=== PATIENT | female | born 1960 | race Caucasian/White ===

== ENCOUNTER → 2021-01-30 | Outpatient (CLI) | payer OTHER ==
[~2021-01-30] MED LIST: BC POWDER PO; COLACE 100100 MG/CAP PO; GAS-X ULTRA ST180 MG PO; MULTI-VITAMIN W1 TA1 PO; PROBIOTIC FORMU1 CAP PO; ROXICODONE 55 MG/TAB PO; TYLENOL 500MG500 MG PO
== END ==
LOC: COL.RAD 07:11
DX: K63.89 Other specified diseases of intestine (principal); N89.8 Other specified noninflammatory disorders of vagina
CPT/HCPCS: Q9967

== ENCOUNTER 2021-02-15 13:56 | Inpatient (IN) | payer OTHER ==
[~2021-02-15] VITALS: Ht 165.1 cm; Wt 46.2 kg
[~2021-02-15 13:56] MED LIST changes: -BC POWDER PO; -COLACE 100100 MG/CAP PO; -GAS-X ULTRA ST180 MG PO; -MULTI-VITAMIN W1 TA1 PO; -ROXICODONE 55 MG/TAB PO; -TYLENOL 500MG500 MG PO
[2021-03-11] MEDS ORDERED: GAS-X ULTRA ST180 MG PO (09:22)
[2021-03-11] MEDS ORDERED: MULTI-VITAMIN W1 TA1 PO (09:22)
[2021-03-11] MEDS ORDERED: COLACE 100100 MG/CAP PO (09:22)
[2021-03-12] VITALS (10 sets, daily range): BP systolic 114–148; BP diastolic 55–81; PULSE 50–69; TEMP 97.8–98.4
[2021-03-12] MEDS ORDERED: BC POWDER PO (11:50)
--- NOTE | 2021-03-12 18:30 | NUR ---
Patient got back from surgery at 1725. She was very drowsy. She would barely wake up when she you tried to talk to her. She wakes easily now and answer questions appropriatly but falls right back to sleep. Vital signs stable. Oriented patient to room. Explained she can not have straws or carbonation. Explained ERAS protocol. Butt secured to leg, urine yellow and clear. Explained when she's more awake will given her something to drink. No other changes at this time. Call light within reach.
--- NOTE | 2021-03-13 00:18 | NUR ---
PT REQUESTS TO TAKE WALK. A&O X3. PT HAS BEEN NAUSEOUS, ZOFRAN IV ADMINISTERED WITH PAIN MEDICATION ET GIVEN BEEF BROTH TO DRINK. PT AMBULATES TO NURSES STATION ET BACK TO HER ROOM WITH 2 ASSIST ET GAITBELT. TOLERATES WELL, GAIT IS STEADY. PT DOES BECOME SLIGHTLY SOA WITH AMBULATION.IV FLUIDS CONTINUE TO INFUSE, TAYLOR CATHETER DRAINING CLEAR YELLOW URINE. SCDs ON, PT DENIES OTHER NEEDS @ THIS TIME. BED ALARM ON, CALL LIGHT WITHIN REACH.
[2021-03-13 04:33] VITALS: BP 122/73; PULSE 82; TEMP 98.5
--- NOTE | 2021-03-13 06:05 | NUR ---
PT RESTING QUIETLY IN BED @ THIS TIME. RESPIRATIONS UNLABORED. TYALOR CATHETER DRAINING CLEAR YELLOW URINE. IV FLUIDS CONTINUE INFUSING. PT HAD NOT BEEN ABLE TO DRINK BEEF BROTH GIVEN TO HER DURING NIGHT RELATED TO NAUSEA ET STATED THAT SHE BURPED UP THE ORANGE JELLO SHE ATE THE NIGHT BEFORE. PT HAS TAKEN MULTIPLE WALKS OUTSIDE OF ROOM WITH 1 ASSIST ET GAITBELT, HAS TOLERATED WELL, GAIT IS STEADY.
[2021-03-13 06:52] LABS: BASO % 0.1 % (0.0-2.0); GRAN # 12.6 K/mm3 (1.4-6.5); GRAN % 79.1 % (42.2-75.2); HEMATOCRIT 37.7 % (37.0-47.0); HEMOGLOBIN 12.9 g/dl (12.5-16.0); LYMPH % 12.7 % (20.0-51.0); MEAN CELL VOLUME 91 fl (80.0-100.0); MEAN CORPUSCULAR HEMOGLOBIN 31 pg (27.0-31.0); MEAN CORPUSCULAR HGB CONC 34 g/dl (33.0-37.0); MEAN PLATELET VOLUME 11.3 fl (7.4-10.4); MONO # 1.2 K/mm3 (0.1-0.6); MONO % 7.6 % (1.7-9.3); PLATELET COUNT 274 K/mm3 (130-400); RED BLOOD COUNT 4.15 M/mm3 (4.10-5.30); REDCELL DISTRIBUTION WIDTH-CV 12.9 % (11.5-14.5)
--- NOTE | 2021-03-13 07:10 | NUR ---
Pt doing okay this morning, no needs verbalized, call light within reach
[2021-03-13 07:21] LABS: CALCIUM 9.3 mg/dL (8.4-10.2); CREATININE, serum 0.75 mg/dL (0.57-1.11); MAGNESIUM 1.9 mg/dL (1.6-2.6); PHOSPHOROUS 3.2 mg/dL (2.3-4.7); POTASSIUM 4.1 mmol/L (3.5-4.5)
[2021-03-13 08:00] VITALS: BP 121/71; PULSE 60; TEMP 98.6
[2021-03-13 12:00] VITALS: BP 136/79; PULSE 72; TEMP 98.5
--- NOTE | 2021-03-13 13:08 | NUR ---
Initial visit; Patient thanked Communications Project Manager for looking in on her and offering prayer and to keep her in Communications Project Manager's prayers. Communications Project Manager visited later to deliver shaffer from her sister.
--- NOTE | 2021-03-13 13:30 | NUR ---
SW met with patient to discuss discharge planning. Patient states she and her significant other, Brayan Banks ([phone]), live in [place] where patient is fully independent. She has no DMES and does not require anything. Patient reports she uses Dr. Jessica Graves for her PCP and that she doesn't presently take any meds but she would use the [facility] if necessary. Patient reports that she does not have a MPOA and she isn't interested in one. SW will follow for patient needs. D/C Plan: home with no needs
--- NOTE | 2021-03-13 13:36 | NUR ---
Pt doing well. Pain controlled by scheduled tylenol. Discussed getting up and walking. Pt getting up and ambulating with standby assist and doing well.
[2021-03-13 15:24] VITALS: BP 150/81; PULSE 67; TEMP 99.4
[2021-03-13 20:30] VITALS: BP 143/81; PULSE 76; TEMP 98.2
[2021-03-13 23:54] VITALS: BP 132/78; PULSE 68; TEMP 98.1
--- NOTE | 2021-03-14 02:38 | NUR ---
PT TOLERATING CLEAR LIQUID DIET WELL ET HAS ADEQUATE OUTPUT FROM TAYLOR CATHETER. URINE IS CLEAR PALE YELLOW. IV FLUIDS STOPPED ET PERIPHERAL IV SALINE LOCKED @ THIS TIME.
[2021-03-14 04:25] VITALS: BP 132/70; PULSE 77; TEMP 98.1
[2021-03-14 06:41] LABS: BASO # 0.1 K/mm3 (0.0-0.2); BASO % 0.3 % (0.0-2.0); EOS # 0.2 K/mm3 (0.0-0.7); EOS % 1.3 % (0-4.0); GRAN # 14.4 K/mm3 (1.4-6.5); GRAN % 78.7 % (42.2-75.2); HEMATOCRIT 39.9 % (37.0-47.0); HEMOGLOBIN 13.5 g/dl (12.5-16.0); LYMPH # 2.8 K/mm3 (1.2-3.4); LYMPH % 15.4 % (20.0-51.0); MEAN CELL VOLUME 91 fl (80.0-100.0); MEAN CORPUSCULAR HEMOGLOBIN 31 pg (27.0-31.0); MEAN CORPUSCULAR HGB CONC 34 g/dl (33.0-37.0); MEAN PLATELET VOLUME 10.7 fl (7.4-10.4); MONO # 0.7 K/mm3 (0.1-0.6); MONO % 3.9 % (1.7-9.3); PLATELET COUNT 251 K/mm3 (130-400); REDCELL DISTRIBUTION WIDTH-CV 12.9 % (11.5-14.5)
[2021-03-14 07:02] LABS: ALBUMIN 3.4 gm/dL (3.4-4.8); BILIRUBIN,TOTAL 0.7 mg/dL (0.2-1.2); CALCIUM 9.4 mg/dL (8.4-10.2); CREATININE, serum 0.65 mg/dL (0.57-1.11); POTASSIUM 4.2 mmol/L (3.5-4.5); TOTAL PROTEIN 6.2 gm/dL (6.2-8.1)
[2021-03-14 07:48] VITALS: BP 136/82; PULSE 78; TEMP 99.2
[2021-03-14 10:41] LABS: MUCOUS Present /lpf; PH 7 (5-8); SQUAMOUS EPITHELIAL None Seen /hpf; URINE APPEARANCE Clear; URINE BACTERIA None Seen /hpf; URINE BILIRUBIN Negative (NEGATIVE); URINE BLOOD 2+ (NEGATIVE); URINE COLOR Straw; URINE GLUCOSE Negative (NEGATIVE); URINE KETONE 1+ (NEGATIVE); URINE LEUKOCYTE ESTERASE Negative (NEGATIVE); URINE NITRATE Negative (NEGATIVE); URINE PROTEIN(semi-quant) Negative (NEGATIVE); URINE UROBILINOGEN Negative (NEGATIVE)
[2021-03-14 10:51] LABS: COLLECTION METHOD CLEAN CATCH
[2021-03-14 11:23] VITALS: BP 149/80; PULSE 82; TEMP 99.1
--- NOTE | 2021-03-14 12:45 | NUR ---
Discussed results of UA with césar Henry to remove iván.
--- NOTE | 2021-03-14 13:15 | NUR ---
pt continues to do well. She is up ambulating and is passing gas. She is tolerating full liquid diet. Minimal pain complaints. Butt has been removed per orders. Discussed her taking a shower this afternoon which she did state she wanted. She reported that her sister was going to visit and then she would let me know. No other needs verbalized, call light within reach
[2021-03-14 16:00] VITALS: BP 150/97; PULSE 98; TEMP 98.9
--- NOTE | 2021-03-14 16:09 | NUR ---
Notified Dr Sam of redness to patients back and chest area. Reported that he would be in to see patient. Called radiology as well regarding chest xray that was ordered this morning that has not been done. Pt reports that she does not notice the rash at all and that it does not itch. Will await new orders
[2021-03-14 19:41] VITALS: BP 142/75; PULSE 76; TEMP 98.9
--- NOTE | 2021-03-14 20:10 | NUR ---
Pt. sitting up in bed. Pt. is A&OX3, assessment complete. INT to lt. forearm patent. Pt. denies pain or other needs, call light within reach.
[2021-03-15 00:31] VITALS: BP 137/84; PULSE 58; TEMP 98.3
[2021-03-15 04:13] VITALS: BP 133/80; PULSE 56; TEMP 97.9
[2021-03-15 07:01] LABS: BASO # 0.1 K/mm3 (0.0-0.2); BASO % 0.5 % (0.0-2.0); EOS # 0.3 K/mm3 (0.0-0.7); EOS % 2.5 % (0-4.0); GRAN # 9.1 K/mm3 (1.4-6.5); GRAN % 70.8 % (42.2-75.2); HEMATOCRIT 40.8 % (37.0-47.0); LYMPH # 2.8 K/mm3 (1.2-3.4); LYMPH % 21.6 % (20.0-51.0); MEAN CELL VOLUME 91 fl (80.0-100.0); MEAN CORPUSCULAR HEMOGLOBIN 31 pg (27.0-31.0); MEAN CORPUSCULAR HGB CONC 34 g/dl (33.0-37.0); MEAN PLATELET VOLUME 11.1 fl (7.4-10.4); MONO # 0.6 K/mm3 (0.1-0.6); MONO % 4.3 % (1.7-9.3); PLATELET COUNT 254 K/mm3 (130-400); RED BLOOD COUNT 4.49 M/mm3 (4.10-5.30); REDCELL DISTRIBUTION WIDTH-CV 12.8 % (11.5-14.5)
[2021-03-15 07:23] LABS: ALBUMIN 3.3 gm/dL (3.4-4.8); BILIRUBIN,TOTAL 0.7 mg/dL (0.2-1.2); CALCIUM 9.9 mg/dL (8.4-10.2); CREATININE, serum 0.62 mg/dL (0.57-1.11); POTASSIUM 3.9 mmol/L (3.5-4.5); TOTAL PROTEIN 6.3 gm/dL (6.2-8.1)
[2021-03-15 08:00] VITALS: BP 148/93; PULSE 102; TEMP 98.2
--- NOTE | 2021-03-15 11:00 | NUR ---
Patient is doing well this morning. She denies pain and nausea. She has been ambulating in the room. She stated he is passing flatus without issues. No bowel movement yet. She did not eat much of her breakfast but stated she does not eat much througout the day. She is hoping to go home this afternoon. No other changes at this time. Call light within reach.
[2021-03-15 12:00] VITALS: BP 129/74; PULSE 79; TEMP 99.1
[2021-03-15] MEDS ORDERED: ROXICODONE 55 MG/TAB PO (16:33)
[2021-03-15] MEDS ORDERED: TYLENOL 500MG500 MG PO (16:33)
--- NOTE | 2021-03-15 17:20 | NUR ---
Patient is discharging home. Discharge instructions discussed with patient. No questions verbalized. INT discontinued. Explained when follow up appointment is and that she has prescriptions to garbage pick up man at her pharmacy. Patient verbalized understanding. Copies of discharge instructions given to patient. All belongings packed up by patient. Patient walked out with this nurse.
== END 2021-03-15 17:20 | disposition home or self-care (01) | DRG 982 ==
LOC: INPTSU 03-12 10:29 → SURG 03-12 10:29
PROVIDERS: ADMIT Surgery
PROC: 8E0W4CZ Robotic Assisted Procedure of Trunk Region, Percutaneous Endoscopic Approach (ICD-10-PCS; 2021-03-12)
PROC: 0TJB8ZZ Inspection of Bladder, Via Natural or Artificial Opening Endoscopic (ICD-10-PCS; 2021-03-12)
PROC: 0DBN4ZZ Excision of Sigmoid Colon, Percutaneous Endoscopic Approach (ICD-10-PCS; principal; 2021-03-12 12:30)
DX: N32.1 Vesicointestinal fistula (principal); E44.0 Moderate protein-calorie malnutrition; Z68.1 Body mass index [BMI] 19.9 or less, adult
CPT/HCPCS: A4314; A9284; J0171; J0690; J1100; J1650; J2250; J2405; J2704; J2795; J3010; J7120

== ENCOUNTER 2022-10-02 12:12 | Emergency (ER) | payer OTHER ==
[~2022-10-02] VITALS: Ht 170.2 cm; Wt 47.7 kg
[~2022-10-02 12:12] MED LIST changes: +BC POWDER PO; +COLACE 100100 MG/CAP PO; +GAS-X ULTRA ST180 MG PO; +MULTI-VITAMIN W1 TA1 PO; +ROXICODONE 55 MG/TAB PO; +TYLENOL 500MG500 MG PO
[2022-10-02 12:19] VITALS: TEMP 97.7
[2022-10-02 12:42] LABS: BASO # 0.1 K/mm3 (0.0-0.2); BASO % 0.7 % (0.0-2.0); EOS # 0.1 K/mm3 (0.0-0.7); EOS % 1.4 % (0.0-4.0); GRAN % 67.4 % (42.2-75.2); HEMATOCRIT 37.4 % (37.0-47.0); HEMOGLOBIN 11.6 g/dl (12.5-16.0); LYMPH # 2.4 K/mm3 (1.2-3.4); MEAN CELL VOLUME 83 fl (80.0-100.0); MEAN CORPUSCULAR HEMOGLOBIN 26 pg (27-31); MEAN CORPUSCULAR HGB CONC 31 g/dl (33.0-37.0); MEAN PLATELET VOLUME 11.1 fl (7.4-10.4); MONO # 0.7 K/mm3 (0.1-0.6); MONO % 7.1 % (1.7-9.3); PLATELET COUNT 304 K/mm3 (130-400); REDCELL DISTRIBUTION WIDTH-CV 16.5 % (11.5-14.5)
[2022-10-02 12:47] LABS: INR 1.2 (0.8-3.0); PROTHROMBIN TIME 13.9 SECONDS (9.7-12.8)
[2022-10-02 12:50] LABS: PARTIAL THROMBOPLASTIN TIME 34.4 SECONDS (26.0-37.0)
[2022-10-02 13:02] LABS: ALBUMIN 3.4 gm/dL (3.4-4.8); BILIRUBIN,TOTAL 0.3 mg/dL (0.2-1.2); CALCIUM 10.8 mg/dL (8.4-10.2); CREATININE, serum 0.66 mg/dL (0.57-1.11); POTASSIUM 4.4 mmol/L (3.5-4.5); TOTAL PROTEIN 8.4 gm/dL (6.2-8.1)
[2022-10-02 13:07] LABS: TROPONIN-I 0.013 ng/mL (0.00-0.033)
[2022-10-02 15:06] VITALS: BP 160/110; PULSE 86
== END 2022-10-02 15:25 | disposition short-term general hospital (02) ==
LOC: COL.ER 12:12
PROVIDERS: Emergency Medicine
DX: I87.1 Compression of vein (principal); D64.9 Anemia, unspecified; F17.200 Nicotine dependence, unspecified, uncomplicated; Z28.310 Unvaccinated for COVID-19
CPT/HCPCS: Q9967

== ENCOUNTER 2022-10-21 17:27 | Inpatient (IN) | payer OTHER ==
[~2022-10-21] VITALS: Ht 170.2 cm; Wt 47.7 kg
[2022-10-21 18:15] LABS: MEAN CELL VOLUME 83 fl (80.0-100.0); MEAN CORPUSCULAR HGB CONC 32 g/dl (33.0-37.0); MEAN PLATELET VOLUME 9.8 fl (7.4-10.4); PLATELET COUNT 567 K/mm3 (130-400); REDCELL DISTRIBUTION WIDTH-CV 17.2 % (11.5-14.5)
[2022-10-21 18:16] LABS: HEMATOCRIT 30.8 % (37.0-47.0); HEMOGLOBIN 9.7 g/dl (12.5-16.0); MEAN CORPUSCULAR HEMOGLOBIN 26 pg (27-31)
[2022-10-21 18:29] LABS: ALANINE AMINOTRANSFERASE 21 U/L (0-55); ALBUMIN 2.9 gm/dL (3.4-4.8); ALKALINE PHOSPHATASE 90 U/L (40-150); ANION GAP 12 mmol/L (7-16); AST,SGOT 33 U/L (5-34); BILIRUBIN,TOTAL 0.2 mg/dL (0.2-1.2); BLOOD UREA NITROGEN 9 mg/dL (10-20); CALCIUM 10.1 mg/dL (8.4-10.2); CARBON DIOXIDE 24 mmol/L (23-31); CHLORIDE 102 mmol/L (98-107); CREATININE, serum 0.62 mg/dL (0.57-1.11); GLUCOSE 88 mg/dL (70-99); POTASSIUM 4.2 mmol/L (3.5-4.5); SODIUM 138 mmol/L (136-145); TOTAL PROTEIN 7.3 gm/dL (6.2-8.1)
[2022-10-21 18:36] LABS: TROPONIN-I < 0.010 ng/mL (0.00-0.033)
[2022-10-21 18:38] LABS: ARTERIAL BLD GAS O2 SATURATION 57.9 % (92-100); ARTERIAL BLD GAS TCO2 CT 31.6; ARTERIAL BLOOD GAS HCO3 30.2 meq/L (22-26); ARTERIAL BLOOD GAS PCO2 47.4 mmHg (35-45); ARTERIAL BLOOD GAS pH 7.42 (7.35-7.45)
[2022-10-21 18:39] LABS: ARTERIAL BLOOD GAS PO2 31.3 mmHg (80-100)
[2022-10-21] MEDS ORDERED: NORVASC 5MG5 MG/TAB PO (18:50)
[2022-10-21] MEDS ORDERED: MOBIC15 MG PO (18:51)
[2022-10-21] MEDS ORDERED: SPIRIVA RE2.5 MCG/Ac IH (18:51)
[2022-10-21] MEDS ORDERED: LIPITOR 40MG TA40 MG PO (18:51)
[2022-10-21 18:53] LABS: BAND 8 % (0-10); LYMPHOCYTE 32 % (20.0-51.0); NEUTROPHILS 54 % (42.0-75.2); PLATELET ESTIMATE INCREASED (NORMAL)
[2022-10-21 18:54] LABS: ANISOCYTOSIS 2+; HYPOCHROMIA 1+
[2022-10-21 20:18] VITALS: BP 107/67; PULSE 89; TEMP 97.8
[2022-10-21 20:30] VITALS: BP_SYST 107
[2022-10-21 22:52] VITALS: BP 142/73; PULSE 88; TEMP 97.5
--- NOTE | 2022-10-21 23:28 | NUR ---
PT DOES NOT WANT TO WEAR HOSPITAL CPAP UNIT TONIGHT AND WILL CALL IF SHE CHANGES HER MIND.
[2022-10-21 23:33] VITALS: BP 131/49; PULSE 80; TEMP 98.8
[2022-10-21 23:41] VITALS: BP 116/71; PULSE 87; TEMP 97
[2022-10-22] VITALS (7 sets, daily range): BP systolic 116–121; BP diastolic 64–71; PULSE 82–103; TEMP 97.5–98.2
--- NOTE | 2022-10-22 02:32 | NUR ---
PT ARRIVED AND ASSESSED AT 2026 PT RESTING IN BED WITH OXYMASK ON GOING AT 5L. PT RELAXED AND SEEMS WITHOUT DISTRESS AND RESTING COMFORTABLY IN LOW BED WITH CALL LIGHT WITHIN REACH. DENIES PAIN AT THIS TIME
--- NOTE | 2022-10-22 09:00 | NUR ---
Patient is resting in bed, alert and oriented x 4, getting 5L O2 oxymask, assessment complede, meds provided, no further needs at this time, call light within reach.
--- NOTE | 2022-10-22 09:39 | NUR ---
SW called pt to complete intake due to restrictions. Pt confirmed living in [place] with Jovanny (significant other) and provided contact number as [phone]. Pt confirmed NOK as Gracy Banks (daughter [phone]). Pt reports having stairs at home and does not have to use them. Pt denied DME. Pt reports CPAC and triology and has had o2 added but is hoping to receive more o2 as "breathing has gotten worse." SW explained upon d/c SW will assist with setting o2 up as ordered. Pt reports PCP as Dr. Graves and uses [facility] in [place] on [address]. Pt denies any issues. Pt reports no DPOA and "has things set up with family." Pt is aware of DPOA option. D/C home with Jovanny (significant other)
[2022-10-22 12:47] LABS: ARTERIAL BLD GAS O2 SATURATION 93.6 % (92-100); ARTERIAL BLD GAS TCO2 CT 23.9; ARTERIAL BLOOD GAS BASE EXCESS 0.1 (-2-2); ARTERIAL BLOOD GAS HCO3 22.9 meq/L (22-26); ARTERIAL BLOOD GAS PCO2 31.3 mmHg (35-45); ARTERIAL BLOOD GAS PO2 66.3 mmHg (80-100); ARTERIAL BLOOD GAS pH 7.48 (7.35-7.45)
[2022-10-22] MEDS ORDERED: ETOPOSIDE (13:10)
[2022-10-22] MEDS ORDERED: PARAPLATIN150 MG/VIA (13:10)
[2022-10-22] MEDS ORDERED: OXYGEN NASAL.CANN (13:39)
[2022-10-22] MEDS ORDERED: PROTONIX 40MG T40 MG PO (14:17)
[2022-10-22] MEDS ORDERED: PREDNISONE10 MG PO (14:17)
--- NOTE | 2022-10-22 14:37 | NUR ---
The hospitalist is ready to discharge the patient today. An exercise oximetry was ordered and the patient qualified for oxygen. JOSHUA met with the patient and family member to follow up. The patient would like to order her oxygen from [facility]. JOSHUA contacted and faxed the oxygen order to Amador at [facility]. Awaiting delivery of oxygen. RN updated. No additional needs at this time.
--- NOTE | 2022-10-22 15:37 | NUR ---
Patient was provided with discharge information, IV access was discontinued. All questions answered.
== END 2022-10-22 17:42 | disposition home or self-care (01) | DRG 189 ==
LOC: COL.ER 17:27 → MEDICAL 18:55
PROVIDERS: Emergency Medicine; ADMIT Internal Medicine
DX: J96.01 Acute respiratory failure with hypoxia (principal); J44.1 Chronic obstructive pulmonary disease with (acute) exacerbation; J90 Pleural effusion, not elsewhere classified; E44.0 Moderate protein-calorie malnutrition; Z68.1 Body mass index [BMI] 19.9 or less, adult; Z66 Do not resuscitate; J39.2 Other diseases of pharynx; C14.0 Malignant neoplasm of pharynx, unspecified; I10 Essential (primary) hypertension; E78.5 Hyperlipidemia, unspecified; R13.10 Dysphagia, unspecified; Z20.822 Contact with and (suspected) exposure to COVID-19; Z88.8 Allergy status to other drugs, medicaments and biological substances; Z87.891 Personal history of nicotine dependence; Z85.118 Personal history of other malignant neoplasm of bronchus and lung
CPT/HCPCS: A9270; J1650; J2920

== ENCOUNTER 2023-01-19 08:00 | Outpatient (RCR) | payer OTHER ==
[2022-12-29 08:28] LABS: MEAN CELL VOLUME 82 fl (80.0-100.0); MEAN CORPUSCULAR HGB CONC 32 g/dl (33.0-37.0); MEAN PLATELET VOLUME 9.7 fl (7.4-10.4); PLATELET COUNT 435 K/mm3 (130-400); RED BLOOD COUNT 2.89 M/mm3 (4.10-5.30); REDCELL DISTRIBUTION WIDTH-CV 20.1 % (11.5-14.5)
[2022-12-29 08:33] LABS: HEMATOCRIT 23.7 % (37.0-47.0); HEMOGLOBIN 7.5 g/dl (12.5-16.0); MEAN CORPUSCULAR HEMOGLOBIN 26 pg (27-31)
[2022-12-29 08:55] LABS: BAND 16 % (0-10); HYPOCHROMIA 2+; LYMPHOCYTE 2 % (20.0-51.0); NEUTROPHILS 75 % (42.0-75.2); NUCLEATED RED BLOOD CELL 1 (0-6); PLATELET ESTIMATE INCREASED (NORMAL)
[2022-12-29 08:56] LABS: ANISOCYTOSIS 2+
[2022-12-29 09:03] LABS: ALBUMIN 2.5 gm/dL (3.4-4.8); BILIRUBIN,TOTAL 0.2 mg/dL (0.2-1.2); CALCIUM 9.8 mg/dL (8.4-10.2); CREATININE, serum 0.56 mg/dL (0.57-1.11); MAGNESIUM 1.9 mg/dL (1.6-2.6); POTASSIUM 4.1 mmol/L (3.5-4.5); TOTAL PROTEIN 6.4 gm/dL (6.2-8.1)
[2023-01-01] VITALS (11 sets, daily range): BP systolic 112–128; BP diastolic 72–87; PULSE 86–97; TEMP 97.4–98.5
--- NOTE | 2023-01-01 11:51 | NUR ---
Pt tolerating first unit PRBC well. She is drinking Boost supplement. She is moved from rm 13 to 9 to lay down for comfort. Call light in reach. She denies needs at this time.
--- NOTE | 2023-01-01 14:30 | NUR ---
Pt tolerated transfusions without issue. She ate lunch brought in by family and visited with them in room 9 during 2nd unit. Following completion, PICC flushed and LORE wrap reapplied. Pt assisted out to family's car by wheelchair.
[2023-01-05 08:00] LABS: MEAN CELL VOLUME 84 fl (80.0-100.0); MEAN CORPUSCULAR HGB CONC 32 g/dl (33.0-37.0); MEAN PLATELET VOLUME 9.5 fl (7.4-10.4); PLATELET COUNT 434 K/mm3 (130-400); RED BLOOD COUNT 3.47 M/mm3 (4.10-5.30); REDCELL DISTRIBUTION WIDTH-CV 20.2 % (11.5-14.5)
[2023-01-05 08:08] VITALS: BP 99/67; PULSE 93; TEMP 99
[2023-01-05 08:09] LABS: HEMATOCRIT 29.3 % (37.0-47.0); HEMOGLOBIN 9.5 g/dl (12.5-16.0); MEAN CORPUSCULAR HEMOGLOBIN 27 pg (27-31)
[2023-01-05 08:19] LABS: ALBUMIN 2.3 gm/dL (3.4-4.8); BILIRUBIN,TOTAL 0.3 mg/dL (0.2-1.2); CALCIUM 9.6 mg/dL (8.4-10.2); CREATININE, serum 0.52 mg/dL (0.57-1.11); POTASSIUM 3.8 mmol/L (3.5-4.5); TOTAL PROTEIN 6.4 gm/dL (6.2-8.1)
[2023-01-05 08:24] LABS: ANISOCYTOSIS 3+; BAND 15 % (0-10); HYPOCHROMIA 1+; LYMPHOCYTE 3 % (20.0-51.0); NEUTROPHILS 73 % (42.0-75.2); PLATELET ESTIMATE INCREASED (NORMAL)
[2023-01-05 08:39] LABS: THYROID STIMULATING HORMONE 0.917 uIU/mL (0.350-4.940)
[2023-01-12 07:50] VITALS: BP 109/72; PULSE 107; TEMP 98.3
[~2023-01-19] VITALS: Ht 170.2 cm; Wt 40.4 kg
[~2023-01-19 08:00] MED LIST changes: +ALBUTEROL1.25 MG/3 IH; +CINVANTI130 MG/18 IV; +ETOPOSIDE IV; +GOOD NEIGH15 MG/5 M1 PO; +KEYTRUDA25 MG/ML IV; +LEVAQUIN 5500 MG/TA1 PO; +LIPITOR 40MG TA40 MG PO; +MELATONIN5 M1 SL; +MOBIC15 MG PO; +MUCINEX1200 MG PO; +NORVASC 5MG5 MG/TAB PO; +OXYGEN NASAL.CANN; +PARAPLATIN150 MG/VIA IV; +PREDNISONE10 MG PO; +PROAIR HFA0.09 MG/AC IH; +PROTONIX 40MG T40 MG PO; +SPIRIVA RE2.5 MCG/Ac IH; +ZOFRAN8 MG PO
[2023-01-19 08:10] VITALS: BP 117/78; PULSE 109; TEMP 97.9
[2023-01-19 08:21] LABS: HEMOGLOBIN 10.5 g/dl (12.5-16.0); MEAN CELL VOLUME 85 fl (80.0-100.0); MEAN CORPUSCULAR HEMOGLOBIN 27 pg (27-31); MEAN CORPUSCULAR HGB CONC 32 g/dl (33.0-37.0); MEAN PLATELET VOLUME 9.2 fl (7.4-10.4); PLATELET COUNT 512 K/mm3 (130-400); RED BLOOD COUNT 3.93 M/mm3 (4.10-5.30); REDCELL DISTRIBUTION WIDTH-CV 20.2 % (11.5-14.5)
[2023-01-19 08:22] LABS: HEMATOCRIT 33.2 % (37.0-47.0)
[2023-01-19 08:37] LABS: ALBUMIN 2.3 gm/dL (3.4-4.8); BILIRUBIN,TOTAL 0.4 mg/dL (0.2-1.2); CALCIUM 9.3 mg/dL (8.4-10.2); CREATININE, serum 0.55 mg/dL (0.57-1.11); MAGNESIUM 2.2 mg/dL (1.6-2.6); POTASSIUM 3.8 mmol/L (3.5-4.5); TOTAL PROTEIN 6.4 gm/dL (6.2-8.1)
[2023-01-19 08:57] LABS: THYROID STIMULATING HORMONE 1.339 uIU/mL (0.350-4.940)
[2023-01-19 09:03] LABS: BAND 3 % (0-10); LYMPHOCYTE 3 % (20.0-51.0); NEUTROPHILS 92 % (42.0-75.2)
[2023-01-19 09:05] LABS: ANISOCYTOSIS 2+; HYPOCHROMIA 2+; PLATELET ESTIMATE INCREASED (NORMAL)
== END 2023-01-22 | disposition home or self-care (01) ==
LOC: EUO
PROVIDERS: Internal Medicine
DX: C34.81 Malignant neoplasm of overlapping sites of right bronchus and lung (principal)
CPT/HCPCS: J7050; P9016

== ENCOUNTER 2023-02-16 08:00 | Outpatient (RCR) | payer OTHER ==
[2023-01-27 10:24] VITALS: BP 105/65; PULSE 100; TEMP 97.6
[2023-01-27 10:30] LABS: MEAN CELL VOLUME 89 fl (80.0-100.0); MEAN CORPUSCULAR HGB CONC 30 g/dl (33.0-37.0); MEAN PLATELET VOLUME 9.4 fl (7.4-10.4); PLATELET COUNT 470 K/mm3 (130-400); RED BLOOD COUNT 3.22 M/mm3 (4.10-5.30)
[2023-01-27 10:41] LABS: ALBUMIN 2.4 gm/dL (3.4-4.8); BILIRUBIN,TOTAL 0.2 mg/dL (0.2-1.2); CALCIUM 9.5 mg/dL (8.4-10.2); CREATININE, serum 0.52 mg/dL (0.57-1.11); MAGNESIUM 2.1 mg/dL (1.6-2.6); POTASSIUM 4.4 mmol/L (3.5-4.5); TOTAL PROTEIN 6.5 gm/dL (6.2-8.1)
[2023-01-27 10:46] LABS: HEMATOCRIT 28.6 % (37.0-47.0); HEMOGLOBIN 8.6 g/dl (12.5-16.0); MEAN CORPUSCULAR HEMOGLOBIN 27 pg (27-31)
[2023-01-27 11:15] LABS: BAND 13 % (0-10); BASOPHIL 1 % (0-2); HYPOCHROMIA 1+; LYMPHOCYTE 10 % (20.0-51.0); NEUTROPHILS 67 % (42.0-75.2); PLATELET ESTIMATE INCREASED (NORMAL)
[2023-02-02 08:10] VITALS: BP 141/75; PULSE 112; TEMP 102
[2023-02-02 08:13] LABS: MEAN CELL VOLUME 89 fl (80.0-100.0); MEAN CORPUSCULAR HGB CONC 30 g/dl (33.0-37.0); MEAN PLATELET VOLUME 9.4 fl (7.4-10.4); PLATELET COUNT 582 K/mm3 (130-400); RED BLOOD COUNT 3.55 M/mm3 (4.10-5.30); REDCELL DISTRIBUTION WIDTH-CV 22.9 % (11.5-14.5)
[2023-02-02 08:14] LABS: HEMATOCRIT 31.6 % (37.0-47.0); HEMOGLOBIN 9.6 g/dl (12.5-16.0); MEAN CORPUSCULAR HEMOGLOBIN 27 pg (27-31)
--- NOTE | 2023-02-02 08:22 | NUR ---
Pt had initial temp of 102. Pt rechecked 30 mins later and still 102.2. 's nurse Oksana notified. States she will notify him and he will call the Pt later today with plan. Pt updated.
[2023-02-02 08:28] LABS: ALBUMIN 2.6 gm/dL (3.4-4.8); BILIRUBIN,TOTAL 0.4 mg/dL (0.2-1.2); CALCIUM 10.2 mg/dL (8.4-10.2); CREATININE, serum 0.58 mg/dL (0.57-1.11); MAGNESIUM 2.2 mg/dL (1.6-2.6); POTASSIUM 4.2 mmol/L (3.5-4.5); TOTAL PROTEIN 6.8 gm/dL (6.2-8.1)
[2023-02-02 08:54] LABS: BAND 4 % (0-10); HYPOCHROMIA 2+; LYMPHOCYTE 4 % (20.0-51.0); NEUTROPHILS 84 % (42.0-75.2); PLATELET ESTIMATE INCREASED (NORMAL)
[2023-02-09 08:04] VITALS: BP 124/75; PULSE 100; TEMP 98.4
[2023-02-09 08:09] LABS: MEAN CELL VOLUME 88 fl (80.0-100.0); MEAN CORPUSCULAR HGB CONC 30 g/dl (33.0-37.0); MEAN PLATELET VOLUME 8.8 fl (7.4-10.4); PLATELET COUNT 471 K/mm3 (130-400); RED BLOOD COUNT 3.43 M/mm3 (4.10-5.30); REDCELL DISTRIBUTION WIDTH-CV 22.2 % (11.5-14.5)
[2023-02-09 08:10] LABS: HEMATOCRIT 30.3 % (37.0-47.0); HEMOGLOBIN 9.1 g/dl (12.5-16.0); MEAN CORPUSCULAR HEMOGLOBIN 27 pg (27-31)
[2023-02-09 08:25] LABS: ANISOCYTOSIS 2+; BAND 6 % (0-10); LYMPHOCYTE 6 % (20.0-51.0); NEUTROPHILS 81 % (42.0-75.2); PLATELET ESTIMATE INCREASED (NORMAL); SCHISTOCYTES 1+
[2023-02-09 08:26] LABS: OVALOCYTES 1+
[2023-02-09 08:27] LABS: ALBUMIN 2.2 gm/dL (3.4-4.8); BILIRUBIN,TOTAL 0.2 mg/dL (0.2-1.2); CALCIUM 9.9 mg/dL (8.4-10.2); CREATININE, serum 0.57 mg/dL (0.57-1.11); POTASSIUM 3.9 mmol/L (3.5-4.5); TOTAL PROTEIN 6.2 gm/dL (6.2-8.1)
[~2023-02-16] VITALS: Ht 170.2 cm; Wt 40.4 kg
[2023-02-16 08:20] VITALS: BP 118/60; PULSE 98; TEMP 97.9
[2023-02-16 08:24] LABS: MEAN CELL VOLUME 91 fl (80.0-100.0); MEAN CORPUSCULAR HGB CONC 31 g/dl (33.0-37.0); MEAN PLATELET VOLUME 9.4 fl (7.4-10.4); PLATELET COUNT 560 K/mm3 (130-400); RED BLOOD COUNT 3.24 M/mm3 (4.10-5.30); REDCELL DISTRIBUTION WIDTH-CV 21.5 % (11.5-14.5)
[2023-02-16 08:37] LABS: BAND 1 % (0-10); EOSINOPHIL 1 % (0-4); LYMPHOCYTE 7 % (20.0-51.0); NEUTROPHILS 89 % (42.0-75.2); PLATELET ESTIMATE INCREASED (NORMAL)
[2023-02-16 08:38] LABS: ANISOCYTOSIS 1+; HEMATOCRIT 29.4 % (37.0-47.0); MEAN CORPUSCULAR HEMOGLOBIN 28 pg (27-31)
[2023-02-16 08:40] LABS: ALBUMIN 2.4 gm/dL (3.4-4.8); BILIRUBIN,TOTAL 0.3 mg/dL (0.2-1.2); CALCIUM 9.8 mg/dL (8.4-10.2); CREATININE, serum 0.52 mg/dL (0.57-1.11); MAGNESIUM 2.2 mg/dL (1.6-2.6); POTASSIUM 3.9 mmol/L (3.5-4.5); TOTAL PROTEIN 6.3 gm/dL (6.2-8.1)
[2023-02-16 09:02] LABS: THYROID STIMULATING HORMONE 1.748 uIU/mL (0.350-4.940)
[2023-02-23] MEDS ORDERED: MOBIC15 MG PO (10:34)
[2023-03-09] MEDS ORDERED: LEVAQUIN 5500 MG/TA1 PO (08:42)
[2023-03-09] MEDS ORDERED: LASIX 40MG TABL40 MG PO (08:42)
[2023-03-09] MEDS ORDERED: K-DUR 10 MEQ T10 MEQ PO (08:42)
[2023-03-09] MEDS ORDERED: NORCO 325 MG-51 TAB PO (08:43)
== END 2023-02-19 09:28 | disposition home or self-care (01) ==
LOC: EUO 08:00
PROVIDERS: Internal Medicine
DX: C34.81 Malignant neoplasm of overlapping sites of right bronchus and lung (principal)

== ENCOUNTER → 2023-02-27 | Outpatient (CLI) | payer OTHER ==
[~2023-02-27] MED LIST changes: +K-DUR 10 MEQ T10 MEQ PO; +LASIX 40MG TABL40 MG PO; +NORCO 325 MG-51 TAB PO
== END ==
LOC: COL.RAD 11:57
DX: C34.81 Malignant neoplasm of overlapping sites of right bronchus and lung (principal); C78.2 Secondary malignant neoplasm of pleura; R59.0 Localized enlarged lymph nodes
CPT/HCPCS: Q9967

== ENCOUNTER 2023-03-12 12:42 | Observation (INO) | payer OTHER ==
[~2023-03-12] VITALS: Wt 41.4 kg
--- NOTE | 2023-03-12 14:36 | NUR ---
FAWN received a referral from the ED PA. Pt has a diagnosis of end-stage 4 thoart cancer, and is currently in a lot of pain. PA inquired if hospice services could be arranged. FAWN met with pt and her daughter, Lindy Diehl, ph# [phone], at the bedside. Pt appeared frail and she was lying on her side in bed with a blanket up to her chin. Pt was oriented to person, time, place and situation as well as a good historian. She reports her oncologist, Dr. Miguel A Lawton discontinued chem tx 2 weeks ago b/c her cancer had spread. He was supposed to refer her to hospice, but so far no hospice agency has contacted her. Pt stated she has been experiencing alot of pain and she called her oncologist today and he sent her to the ED. Pt and daughter are looking at comfort care and would like to continue to pursue hospice services. FAWN gave pt and daughter the Medicare.gov list of hospice services in the [facility] for their review. Pt indicated she is leading toward inpt hospice, and wondered if her insurance, [employer] will cover. FAWN explained her insurance will most likely pay for hospice services, but the room/board will be an out of pocket expense. Advised pt she can apply for Medicaid to cover the room/board if she decides on inpt hospice. FAWN received telephone calls from both ED PA and attending MD on the medicine service, pt will be admitted for palliative care. FAWN will follow-up with pt and her daughter on the medicine unit in the am to facilitate hospice services and/or placement. No other concerns noted.
[2023-03-12] MEDS ORDERED: LEVAQUIN 5500 MG/TA1 PO ×2 (15:08→15:09)
[2023-03-12 16:06] VITALS: BP 108/71; PULSE 94; TEMP 98.2
[2023-03-12 17:00] VITALS: BP_SYST 108
--- NOTE | 2023-03-12 18:46 | NUR ---
PATIENT BROUGHT TO FLOOR AT APPROXIMATELY 1730. PATIENT ON 2L BASELINE BUT REQUESTS TO BE INCREASED TO 3L FOR COMFORT. RT IN THE ROOM AND OKAY WITH INCREASE. PATIENT REPORTS NAUSEA, REQUESTS MEDICATION. PATIENT REPORTS PAIN 8/10 AND INCREASING. FENTANYL PATCH APPLIED, ROXANOL PO ADMINISTERED. 16F TAYLOR INSERTED WITH YELLOW OUTPUT. PATIENT TOLERATED WELL. PATIENT DENIES ANY FURTHER NEEDS. CALL LIGHT IN REACH. BED ALARM ON.
[2023-03-12 19:15] VITALS: BP 123/86; PULSE 91; TEMP 98.7
[2023-03-12 23:00] VITALS: BP 107/75; PULSE 88; TEMP 99.2
[2023-03-12 23:30] VITALS: BP 107/75; PULSE 88; TEMP 99.2
--- NOTE | 2023-03-13 05:00 | NUR ---
ASSESSMENT COMPLETE FOR FITNESS PROFESSIONAL. PT COMPLAINED OF PAIN IN HER SHOULDERS, BACK AND ARMS. PT GIVEN ROXANOL FOR PAIN. PT FELT PAIN MEDICATION WAS EFFECTIVE. PT ALSO COMPLAINED OF NAUSEA. PT GIVEN ZOFRAN FOR NAUSEA. PT FELT THE ZOFRAN HELPED. PT REQUESTED HER TAYLOR CATHETER BE REMOVED. CATHETER REMOVED. BALLOON INTACT. HOSPITALIST INFORMED. PT HELPED TO THE BATHROOM AFTER CATHETER REMOVAL. PT DENIED ANY ISSUES URINATING. PT DENIED CHEST PAIN, PALPITATIONS, SOB, V,D OR DIZZINESS. PT EXPRESSED NO ADDITIONAL NEEDS. CALL LIGHT WITHIN REACH.
[2023-03-13 07:12] VITALS: BP 125/70; PULSE 100; TEMP 98.2
--- NOTE | 2023-03-13 08:12 | NUR ---
VP MARKETING SERVICES AND SKIN telephoned pt's daughter, Lindy Diehl this morning, ph# [phone], to inquire if she and pt decided on a referral to inpt hospice vs. hospice services @ home, dtr stated pt would like inpt hospice @ [facility], but worried about room and board cost. Advised daughter, VP MARKETING SERVICES AND SKIN will make a referral to [facility] to assist with applying for Medicaid coverage for room and board. Daughter verbalized understanding and agreed to plan. [facility] clinical[facility], fax# [phone] this morning.
--- NOTE | 2023-03-13 08:33 | NUR ---
PT LAYING IN BED, ALERT AND ORIENTEDX4. RATES PAIN 7/10 EVERYWHERE BUT THE WORST IN HER BACK. PUT ON LIDOCAIN PATCH ON LOWER BACK. PT ALSO COMPLAINING OF SOME NAUSEA. GAVE ZOFRAN. PT HAS NOT VOIDED YET AFTER HAVING TAYLOR OUT BUT SAYS SHE HAS NOT CONSUMED MUCH FLUIDS YET. CALL LIGHT WITHIN REACH.
--- NOTE | 2023-03-13 10:22 | NUR ---
Initial visit; Patient thanked Wage Conciliator for her visit and for asking how she is handling her health issues and recent diagnosis. Patient said she knows her Doctor has done all he could as well as everyone who has taken care of her and she is working on acceptance. Wage Conciliator will keep patient in her prayers.
--- NOTE | 2023-03-13 11:48 | NUR ---
PROJECT MANAGEMENT ENGINEER learned that pt's insurance website is down. Rayo from [facility] will give update on pt's referral this afternoon. Tina from [facility] met with pt this morning to complete Medicaid Application. PROJECT MANAGEMENT ENGINEER briefly met with pt and gave her update. No other concerns noted.
--- NOTE | 2023-03-13 15:01 | NUR ---
BOWLING FLOOR MANAGER spoke with Rayo, residence life coordinator @ [facility], ph# [phone], this afternoon. Pt has tentatively been accepted to their hospice inpt facility for 03/15/2023, admission time: 11 am. He is waiting for Dr. Jessica Graves to signed the paperwork that she has agreed to follow pt, once that is done, pt can go to the facility. BOWLING FLOOR MANAGER scheduled EMS transportation thru [facility], ph# [phone], contact, Chet. [facility] will transport pt @ 10:45 am. Pt will be going to room #9 and the nurse to nurse report ph# is [phone]. If any clinical info needs to be fax to the hospice facility, please use fax number # [phone]. BOWLING FLOOR MANAGER will alert weekend SW to follow up with discharge on Thursday. Attending MD, Tree Cutter, pt and family have also been notified of pending discharge. Transfer form has been placed on pt's chart.
[2023-03-13 19:21] VITALS: BP 115/72; PULSE 102; TEMP 97.7
[2023-03-14 07:45] VITALS: BP 133/75; PULSE 108; TEMP 98.1
--- NOTE | 2023-03-14 09:37 | NUR ---
Patient resting in bed. Her supportive family at bedside. rounded and plan of care reviewed. Patient main concern is of nausea this am, zofran did not seem to help, so phenergan was given IV. Patient has minimal appetite, but had requested ensure. Vanilla provided. Patient was one assist to the bathroom & voided. We did have a long conversation this am regaurding her prognosis, she is looking forward to hospice house. Will monitor & keep comfortable this am .
--- NOTE | 2023-03-14 10:33 | NUR ---
Nutritional Services Director rounds: Nutritional Services Director visit attempted; Patient has several visitors in the room.
--- NOTE | 2023-03-14 11:31 | NUR ---
Patient medicated with pain as requested. Family brought in lunch. Multiple guest at bedside. Will monitor
--- NOTE | 2023-03-14 17:50 | NUR ---
Patient siting up in bed, alert and orieneted. Dinner ordered. Pain and nausea controlled at this time with medications. Patient reports overall feeling much better and even having an appetite now that her pain is managed. We discussed end of life care is reason to take medication that are prescribed to keep her comfortable. SHe visisted with friend this afternoon & lifted her spirits. Will report off to nightnurse
[2023-03-14 19:29] VITALS: BP 117/67; PULSE 100; TEMP 99.2
[2023-03-15 07:35] VITALS: BP 116/66; PULSE 107; TEMP 98.4
--- NOTE | 2023-03-15 08:13 | NUR ---
Pt. sitting up in bed. Pt. assisted to and from bathroom with standby assist. INT to lt. forarm not flushing well. New site to rt. forearm started, 22g, 1 attempt. Pt. tolerated well. Pt. reports pain at a 9 on pain scale, gave pain meds per orders. Pt. denies further needs, call light within reach.
[2023-03-15] MEDS ORDERED: SYSTANE 0.4%-0.1 SOL OU (09:21)
[2023-03-15] MEDS ORDERED: DULCOLAX S10 MG/SUPP RC (09:21)
[2023-03-15] MEDS ORDERED: TRANSDERM-0.5 MG/21 TD (09:21)
[2023-03-15] MEDS ORDERED: PHENERGAN 25 TA25 MG PO (09:22)
[2023-03-15] MEDS ORDERED: ZOFRAN ODT4 MG PO (09:22)
[2023-03-15] MEDS ORDERED: ROXANOL 20MG20 MG/ML SL (09:23)
[2023-03-15] MEDS ORDERED: ATIVAN 1MG T1 MG/TAB PO (09:23)
--- NOTE | 2023-03-15 10:55 | NUR ---
EMS has arrived to transfer the pt. to [facility]. INT discontinued from rt. forearm. Pt. able to transfter to stretcher. Packet sent with ems. Report called to [facility].
== END 2023-03-15 11:00 | disposition hospice, inpatient (51) ==
LOC: COL.ER 12:42 → SURG 14:57
PROVIDERS: ADMIT Internal Medicine
DX: Z51.5 Encounter for palliative care (principal); C14.0 Malignant neoplasm of pharynx, unspecified; I82.210 Acute embolism and thrombosis of superior vena cava; R06.02 Shortness of breath; E78.5 Hyperlipidemia, unspecified; Z87.891 Personal history of nicotine dependence
CPT/HCPCS: G0378; J1170; J2405; J2550